=== PATIENT | male | born 1935 | race African-American/Black ===

== ENCOUNTER 2018-12-13 15:44 | Emergency (ER) | payer OTHER ==
[~2018-12-13] VITALS: Ht 188 cm; Wt 72.6 kg
[2018-12-13 16:14] LABS: URINE BILIRUBIN NEGATIVE (Negative); URINE BLOOD NEGATIVE (Negative); URINE CLARITY CLEAR; URINE COLOR YELLOW; URINE GLUCOSE-RANDOM* NEGATIVE (Negative); URINE KETONES NEGATIVE (Negative); URINE LEUKOCYTES NEGATIVE (Negative); URINE NITRITE NEGATIVE (Negative); URINE PROTEIN (DIPSTICK) NEGATIVE (Negative); URINE UROBILINOGEN 0.2 E.U./dl (0.2-1.0)
[2018-12-13 16:15] LABS: ABSOLUTE NEUTROPHILS 5.7 thou/uL (1.4-8.2); BASOPHILS 0.5 % (0.0-2.0); EOSINOPHILS 1.2 % (0.0-3.0); HEMATOCRIT 36.1 % (42.0-52.0); HEMOGLOBIN 11.9 gm/dL (14.0-18.0); MCH 29.8 pg (26.0-34.0); MCHC 32.9 g/dL (28.0-37.0); MCV 90.8 fL (80.0-100.0); MONOCYTES 4.9 % (1.0-8.0); PLATELET COUNT 325 thou/uL (150-400); POLYS 82.4 % (36.0-66.0); RBC 3.97 mil/uL (4.50-6.00); RDW 16.6 % (10.5-14.5); WBC 6.9 thou/uL (4.0-11.0)
[2018-12-13 16:18] LABS: CALCIUM 9.5 mg/dL (8.5-10.1); CREATININE 1.3 mg/dL (0.7-1.3); POTASSIUM 4.4 mmol/L (3.5-5.1)
[2018-12-13] MEDS ORDERED: DEPAKOTE125 MG PO (16:18)
[2018-12-13] MEDS ORDERED: EXELON1 EACH TRANSDERM (16:19)
[2018-12-13] MEDS ORDERED: IPRAT-ALBUT 0.5-3 ML INH (16:19)
[2018-12-13] MEDS ORDERED: IPRATROPIU0.2 MG/1 M INH (16:20)
[2018-12-13] MEDS ORDERED: REMERON15 MG PO (16:20)
[2018-12-13] MEDS ORDERED: TYLENOL325 MG PO (16:21)
[2018-12-13 16:25] LABS: ALBUMIN 3.1 g/dL (3.4-5.0); TOTAL BILIRUBIN 0.5 mg/dL (<0.1-1.0); TOTAL PROTEIN 8.6 g/dL (6.4-8.2)
[2018-12-13 22:40] VITALS: BP 166/102
--- NOTE | 2018-12-14 08:18 | EKG ---
[address] [address] [place] [address] ELECTROCARDIOGRAM REPORT Name: CUBA CEJA Room #: DEP [facility]EST Alan#: [id number] Admission: 12/13/18 Attend Phys: Discharge: 12/13/18 Date of : 35 Report #: [id number] THIS REPORT FOR: //name// [facility] ED Test Date: 2018-12-13 Test Time: 15:45:59 Pat Name: CUBA CEJA Department: Room: Gender: Staffing Assistant: : [id number] Requested By: Mayuri Goodman Order Number: [id number] MD: Dave Luke Measurements Intervals [place] Rate: 97 P: 35 NV: 98 QRS: -81 QRSD: 126 T: 70 QT: 406 QTc: 516 Interpretive Statements Sinus rhythm Short NV interval RBBB and LAFB No previous ECG available for comparison Electronically Signed On 12-14-2018 8:18:02 CDT by Dave Luke [email or web address] <ELECTRONICALLY SIGNED> By: Dave Luke MD, [facility] 12/14/18 0818 1545 1545 Dave Luke MD, FACC /EPI
== END 2018-12-13 22:40 ==
LOC: ER 15:44
PROVIDERS: Emergency Medicine
DX: E86.0 Dehydration (principal); F03.90 Unspecified dementia, unspecified severity, without behavioral disturbance, psychotic disturbance, mood disturbance, and anxiety; R41.82 Altered mental status, unspecified